=== PATIENT | female | born 1945 | race Caucasian/White ===

== ENCOUNTER 2019-04-06 13:20 | Emergency (ER) | payer OTHER ==
[~2019-04-06] VITALS: Ht 165.1 cm; Wt 68.0 kg
[2019-04-06 13:55] VITALS: BP 130/93
[2019-04-06] MEDS: ACETAMINOPHEN 325 MG TAB PO ONE (14:56)
== END 2019-04-06 15:10 | disposition home or self-care (01) ==
LOC: ER 13:20 → EDBD 13:20 → ER 15:00
DX: S51.812A Laceration without foreign body of left forearm, initial encounter (principal); S80.212A Abrasion, left knee, initial encounter; M17.12 Unilateral primary osteoarthritis, left knee; K21.9 Gastro-esophageal reflux disease without esophagitis; I10 Essential (primary) hypertension; W19.XXXA Unspecified fall, initial encounter; Y93.89 Activity, other specified; Y92.89 Other specified places as the place of occurrence of the external cause; Y99.8 Other external cause status
CPT/HCPCS: 73562

== ENCOUNTER 2023-07-21 12:59 | Emergency (ER) | payer OTHER ==
[~2023-07-21] VITALS: Ht 152.4 cm; Wt 75.0 kg
[2023-07-21] MEDS: ONDANSETRON HCL 4 MG/2 ML VIAL IV ONE (13:32)
[2023-07-21] MEDS: MECLIZINE HCL 25 MG TAB PO ONE (13:32)
[2023-07-21 13:35] LABS: Basophils # (auto) 0.1 10 ^3/uL (0-0.2); Basophils % (auto) 0.8 % (0.0-2.0); Eosinophils # (auto) 0.1 10 ^3/uL (0-0.8); Eosinophils % (auto) 0.4 % (0.0-7.0); Hematocrit 47.3 % (36.0-46.0); Lymphocytes # (auto) 2.2 10 ^3/uL (0.4-5.4); Lymphocytes % (auto) 14.9 % (10.0-50.0); Mean Corpuscular Hemoglobin 27.9 pg (28.0-32.0); Mean Corpuscular Hgb Conc. 31.7 g/dL (32.0-36.0); Mean Corpuscular Volume 87.9 fL (80.0-100.0); Monocytes # (auto) 0.7 10 ^3/uL (0-1.3); Monocytes % (auto) 4.8 % (0.0-12.0); Neutrophils # (auto) 11.9 10 ^3/uL (1.6-8.6); Neutrophils % (auto) 79.1 % (37.0-80.0); Red Blood Cells 5.38 10^6/uL (4.0-5.20); Red Cell Distribution Width 14.4 % (11.8-14.3)
[2023-07-21 13:56] LABS: Alanine Aminotransferase 18 U/L (7-40); Alkaline Phosphatase 57 U/L (46-116); Anion Gap 4 (5-15); Aspartate Aminotransferase 12 U/L (13-40); BUN/Creatinine Ratio 19.3 (10.0-20.0); Blood Urea Nitrogen 17 mg/dL (9-23); Calcium 9.3 mg/dL (8.7-10.4); Carbon Dioxide 32 mmol/L (20-30); Chloride 97 mmol/L (98-107); Glucose 121 mg/dL (74-106); Lipase 29 U/L (12-53); Magnesium 1.9 mg/dL (1.6-2.6); Potassium 4.4 mmol/L (3.5-5.1); Sodium 133 mmol/L (136-145)
[2023-07-21 13:57] LABS: Bilirubin, Total 2.2 mg/dL (0.2-1.0); Total Protein 6.6 g/dL (5.7-8.2)
[2023-07-21] MEDS ORDERED: ZOFR4T PO (15:00)
[2023-07-21] MEDS: SODIUM CHLORIDE 0.9% 1,350 ML IV ONE (15:04)
[2023-07-21] MEDS ORDERED: MECL1TAB42 PO (18:36)
[2023-07-21 19:02] VITALS: BP 141/59; PULSE 82; RESP 18; TEMP 97.8; O2SAT 96
== END 2023-07-21 22:02 | disposition left against medical advice (07) ==
LOC: EDBD 12:59 → ER 13:02
DX: D72.829 Elevated white blood cell count, unspecified (principal); R42 Dizziness and giddiness; I10 Essential (primary) hypertension; E78.5 Hyperlipidemia, unspecified; K21.9 Gastro-esophageal reflux disease without esophagitis; Z98.890 Other specified postprocedural states
CPT/HCPCS: 36415; 70450; 80053; 82248; 83605; 83690; 83735; 84484; 85025; 87040; 93005; 96361; 96374; 99285; J2405; J7030; J8597

== ENCOUNTER 2025-01-24 08:55 | Emergency (ER) | payer OTHER ==
[~2025-01-24] VITALS: Ht 157.5 cm; Wt 100.0 kg
[~2025-01-24 08:55] MED LIST: MECL1TAB42 PO; ZOFR4T PO
--- NOTE | 2025-01-24 09:16 | ED.PDOC ---
History of Present Illness HPI Comments Patient is a 79-year-old female with past medical history of hypertension, asthma, GERD, vertigo who comes in due to presyncope. According to the patient, last night as she got up from seated position she felt dizzy, held on for support and was able to sit down, denies losing consciousness or sustaining a fall. Patient notes dizziness is worsened with movement and improved with sitting down. Patient notes he has had similar symptoms in the past with vertigo. On review of systems patient is complaining of chills, cough, rhinorrhea and urinary frequency, patient is incontinent at baseline. Chief Complaint: Dizziness Time Seen by MD: 09:00 Allergies: Coded Allergies: Codeine (Verified Allergy, Unknown, 01/24/25) Tetracycline (Verified Allergy, Unknown, 07/21/23) Home Meds Active Scripts Cephalexin Monohydrate (Cephalexin) 500 Mg Cap, 1 CAP PO BID for 7 Days, #20 CAP Prov:VELASQUEZ AGUAYO 01/24/25 Meclizine HCl (Meclizine 25) 25 Mg Tab, 25 MG PO Q6HP PRN for 4 Days, #16 TAB Prov:SUAD MENSAH MD 07/21/23 Ondansetron Odt 4MG Tab (ZOFRAN PO) 4 Mg Tb, 4 MG PO TID for 7 Days, #21 TAB ODT TAB-DISSOLVE IN MOUTH, THEN SWALLOW Prov:SUAD MENSAH MD 07/21/23 Mode of Arrival: EMS Past Medical History PAST MEDICAL HISTORY: GERD, High Lipids, HTN Past Medical History (Other): hypertension, asthma, GERD, vertigo Surgical History: Appendectomy, Cholecystectomy, , Hysterectomy PROFILE TRIMMER History: No Pertinent PROFILE TRIMMER History Family History Family History: Reviewed,noncontributory to illness, No family hx of Cancer, No family hx of DM, No family hx of Heart merari, No family hx of HTN, No family hx ofKidney merari, No family hx of Liver merari, No family hx of Lung merari, No family hx of Stroke Social History Smoker: Non-Smoker Alcohol: Denies ETOH Use Drugs: Denies Drug Use Lives In: Home Constitutional: reports: chills; denies: diaphoresis, fatigue, fever, malaise, sweats, weakness, others EENTM: denies: blurred vision, double vision, ear bleeding, ear discharge, ear drainage, ear pain, ear ringing, eye pain, eye redness, hearing loss, mouth pain, mouth swelling, nasal discharge, nose bleeding, nose congestion, nose pain , photophobia, tearing, throat pain, throat swelling, voice changes, others Respiratory: reports: cough; denies: hemoptysis, orthopnea, SOB at rest, shortness of breath, SOB with excertion, stridor, wheezing, others Cardiovascular: denies: chest pain, dizzy spells, diaphoresis, Dyspnea on exertion, edema, irregular heart beat, left arm pain, lightheadedness, palpitations, PND, syncope, others Gastrointestinal: denies: abdomen distended, abdominal pain, blood streaked bowels, constipated, diarrhea, dysphagia, difficulty swallowing, hematemesis, melena, nausea, poor appetite, poor fluid intake, rectal bleeding, rectal pain, vomiting, others Genitourinary: reports: frequency, incontinence; denies: abnormal vagina bleeding, burning, dyspareunia, dysuria, flank pain, hematuria, pain, , vagina discharge, urgency, others Neurological: reports: dizziness; denies: fainting, headache, left sided numbness, left sided weakness, numbness, paresthesia, pre-existing deficit, right sided numbness, right sided weakness, seizure, speech problems, tingling, tremors, weakness, others Musculoskeletal: denies: back pain, gout, joint pain, joint swelling, muscle pain, muscle stiffness, neck pain, others Integumetry: denies: bruises, change in color, change in hair/nails, dryness, laceration, lesions, lumps, rash, wounds, others Allergic/Immunocompromised: denies: Difficulty Healing, Frequent Infections, Hives, Itching, others Hematologic/Lymphatic: denies: anemia, blood clots, easy bleeding, easy bru ising, swollen glands, others Endocrine: denies: excessive hunger, excessive sweating, excessive thirst, e xcessive urination, flushing, intolerance to cold, intolerance to heat, unexplained weight gain, unexplained weight loss, others Psychiatric: denies: anxiety, bipolar disorder, depression, hopeless, panic disorder, schizophrenia, sleepless, suicidal, others Physical Exam General Appearance: No Apparent Distress, Normal HEENT: Normal ENT Inspection, PERRL/EOMI Neck: Non-Tender, Normal, Normal Inspection Respiratory: Chest Non-Tender, Lungs Clear, No Accessory Muscle Use, No Respiratory Distress, Normal Breath Sounds Cardiovascular: Normal Peripheral Pulses, Regular Rate/Rhythm Breast Exam: Deferred Gastrointestinal: Non Tender, No Pulsatile Mass, Normal Bowel Sounds Genitalia: Deferred Pelvic: Deferred Rectal: Rectal Exam not done Extremities: Leg edema (Trace pitting edema), No calf tenderness, Normal capillary refill, Normal inspection, Non-tender Neurologic: Alert, No Motor Deficits, Normal Affect, Normal Mood, No Sensory Deficits Cerebellar Function: Normal Reflexes: NOT DONE Skin: Dry, Normal Color Peripheral Pulses: 2+ dorsalis pedis (R), 2+ dorsalis pedis (L) Lymphatic: NOT DONE Was a procedure done? Was a procedure done?: No Differential Dx Considerations may include: Vertigo CVA Sepsis UTI X-Ray, Labs, Meds, VS Vital Signs Date Time Temp Pulse Resp B/P (MAP) Pulse Ox O2 Delivery O2 Flow Rate FiO2 01/24/25 11:05 97.8 73 16 184/79 (114) 97 97.8 01/24/25 09:04 76 01/24/25 09:01 98.8 87 18 177/98 98 98.8 Lab Test 01/24/25 10:54 01/24/25 10:48 01/24/25 09:42 Range/Units Troponin I High Sensitivity Pending 5 </=34 ng/L Urine Color Light-yellow Yellow Urine Clarity Clear Clear Urine pH 6.5 5.0-9.0 Urine Specific [place] 1.011 1.001-1.035 Urine Protein Negative Negative Urine Ketones Negative Negative Urine Blood Negative Negative /uL Urine Nitrite Negative Negative Urine Bilirubin Negative Negative Urine Urobilinogen Normal Negative mg/dL Urine Leukocyte Esterase 1+ Negative /uL Urine RBC 1 0 - 4 /hpf Urine Microscopic WBC 4 0-5 /HPF Urine Squamous Epithelial Cells Few <5 /hpf Urine Bacteria None seen None Seen /hpf Urine Glucose Normal Normal mg/dL White Blood Count 8.3 4.4-10.8 10^3/uL Red Blood Count 5.30 H 4.0-5.20 10^6/uL Hemoglobin 14.6 12.2-16.2 g/dL Hematocrit 45.4 36.0-46.0 % Mean Corpuscular Volume 85.7 80.0-100.0 fL Mean Corpuscular Hemoglobin 27.6 L 28.0-32.0 pg Mean Corpuscular Hemoglobin Concent 32.2 32.0-36.0 g/dL Red Cell Distribution Width 13.9 11.8-14.3 % Platelet Count 279 140-450 10^3/uL Mean Platelet Volume 7.6 6.9-10.8 fL Neutrophils (%) (Auto) 54.3 37.0-80.0 % Lymphocytes (%) (Auto) 34.4 10.0-50.0 % Monocytes (%) (Auto) 7.0 0.0-12.0 % Eosinophils (%) (Auto) 3.5 0.0-7.0 % Basophils (%) (Auto) 0.8 0.0-2.0 % Neutrophils # (Auto) 4.5 1.6-8.6 10 ^3/uL Lymphocytes # (Auto) 2.9 0.4-5.4 10 ^3/uL Monocytes # (Auto) 0.6 0-1.3 10 ^3/uL Eosinophils # (Auto) 0.3 0-0.8 10 ^3/uL Basophils # (Auto) 0.1 0-0.2 10 ^3/uL Nucleated Red Blood Cells 0.1 % Sodium Level 137 136-145 mmol/L Potassium Level 4.9 3.5-5.1 mmol/L Chloride Level 99 98-107 mmol/L Carbon Dioxide Level 31 20-31 mmol/L Anion Gap 7 5-15 Blood Urea Nitrogen 13 9-23 mg/dL Creatinine 1.07 H 0.550-1.02 mg/dL Glomerular Filtration Rate Calc 53 >90 mL/min BUN/Creatinine Ratio 12.1 10.0-20.0 Serum Glucose 92 74-106 mg/dL Calcium Level 9.8 8.7-10.4 mg/dL Time of 1ST Reevaluation: 10:10 Reevaluation 1ST: Improved Time of 2ND Reevaluation: 11:51 Reevaluation 2ND: Improved Patient Education/Counseling: Diagnosis, Treatment, Prognosis, Need For Follow Up Family Education/Counseling: No Family Present SEPSIS Sepsis Screen Date sepsis recognized/suspect: Jan 24, 2025 Time Sepsis recognized/suspect: 900 Recent Procedure: No On Antibiotic Therapy: No Respiratory Rate >20: No Heart Rate >90: No Temp<36 C (96.8 F) or >38.3 C: No SBP <90 or MAP <65 mmHG: No New Acute Mental Status Change: No Is the patient on CPAP, BIPAP,: No Physician Orders Head Without Contrast (01/24/25 09:16) Troponin-I Hs (01/24/25 10:16) Troponin-I Hs (01/24/25 12:16) Vital Signs Date Time Temp Pulse Resp B/P (MAP) Pulse Ox O2 Delivery O2 Flow Rate FiO2 01/24/25 11:05 97.8 73 16 184/79 (114) 97 97.8 01/24/25 09:04 76 01/24/25 09:01 98.8 87 18 177/98 98 98.8 Laboratory Tests Test 01/24/25 09:42 White Blood Count 8.3 10^3/uL (4.4-10.8) Departure 1 Departure Time of Disposition: 11:55 Impression: Primary Impression: Vertigo Additional Impression: UTI (urinary tract infection) Disposition: 01 HOME / SELF CARE / HOMELESS Condition: Fair e-Prescriptions Cephalexin Monohydrate (Cephalexin) 500 Mg Cap 1 CAP PO BID for 7 Days, #20 CAP Prov: VELASQUEZ AGUAYO RESIDENT 01/24/25 Critical Care Note Critical Care Time?: No Stability Stability form required: VELASQUEZ Hernadez RESIDENT Jan 24, 2025 09:16
--- NOTE | 2025-01-24 09:36 | ECG ---
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
--- NOTE | 2025-01-24 09:52 | DVH ---
CLINICAL HISTORY: presyncope TECHNIQUE: Helical scanning was performed of the head from the skull base to the vertex. Multiplanar reconstructions were performed. This exam was performed according to our departmental dose optimization program. Up-to-date CT equipment and radiation dose reduction techniques are utilized as appropriate. CTDI 57 DLP 1009 COMPARISON: CT HEAD WITHOUT CONTRAST on DOS: 07/21/23 FINDINGS: There is no evidence for acute intracranial hemorrhage, acute ischemic changes, mass, mass effect, or extra-axial fluid collection. There is no hydrocephalus or midline shift. There is no effacement of the cerebral sulci and basal subarachnoid cisterns. The lanza-white matter differentiation is well maintained. Scattered white matter hypoattenuation is most compatible with a [id number] burden of nonspecific chronic small vessel ischemic change. There has been bilateral cataract extraction. The imaged paranasal sinuses are clear. IMPRESSION: NO ACUTE INTRACRANIAL ABNORMALITY SEEN.
[2025-01-24 09:54] LABS: Hematocrit 45.4 % (36.0-46.0); Hemoglobin 14.6 g/dL (12.2-16.2); Mean Corpuscular Hemoglobin 27.6 pg (28.0-32.0); Mean Corpuscular Volume 85.7 fL (80.0-100.0); Nucleated Red Blood Cells % 0.1 %
[2025-01-24 09:59] LABS: Chloride 99 mmol/L (98-107); Potassium 4.9 mmol/L (3.5-5.1); Sodium 137 mmol/L (136-145)
[2025-01-24 10:00] LABS: Anion Gap 7 (5-15)
[2025-01-24 10:01] LABS: Calcium 9.8 mg/dL (8.7-10.4); Carbon Dioxide 31 mmol/L (20-31)
[2025-01-24 10:05] LABS: BUN/Creatinine Ratio 12.1 (10.0-20.0); Blood Urea Nitrogen 13 mg/dL (9-23); Glucose 92 mg/dL (74-106)
[2025-01-24 11:04] LABS: Urine Protein, UAD Negative (Negative)
[2025-01-24] MEDS ORDERED: CEPH500C PO (11:53)
[2025-01-24 12:40] VITALS: BP 163/88; PULSE 93; RESP 18; TEMP 98.2; O2SAT 98
[2025-01-24] MEDS: LOSARTAN POTASSIUM 50 MG TAB PO ONE (12:41)
== END 2025-01-24 12:44 | disposition home or self-care (01) ==
LOC: EDBD 08:55 → ER 08:55
DX: N39.0 Urinary tract infection, site not specified (principal); R42 Dizziness and giddiness; J45.909 Unspecified asthma, uncomplicated; I10 Essential (primary) hypertension; Z88.1 Allergy status to other antibiotic agents; Z88.5 Allergy status to narcotic agent; Z90.49 Acquired absence of other specified parts of digestive tract; Z90.710 Acquired absence of both cervix and uterus
CPT/HCPCS: 36415; 70450; 80048; 81001; 84484; 85025; 93005